=== PATIENT | male | born 1950 ===

== ENCOUNTER 2021-03-20 06:00 | Outpatient (RCR) | payer MEDICARE, SELFPAY | END 2021-04-19 23:59 | disposition home or self-care (01) | LOC: SST 06:00 | PROVIDERS: PCP Physical Medicine & Rehabilitation; Referring Provider Physical Medicine & Rehabilitation; Visit Provider Physical Medicine & Rehabilitation | DX: C32.9 Malignant neoplasm of larynx, unspecified (principal); Y63.2 Overdose of radiation given during therapy; G82.52 Quadriplegia, C1-C4 incomplete; R49.9 Unspecified voice and resonance disorder | CPT/HCPCS: 92607; 92608 ==